=== PATIENT | female | born 1950 | race Two or more races ===

== ENCOUNTER 2020-10-02 07:05 | Inpatient (IN) | payer MEDICARE ==
[~2020-10-02] VITALS: Ht 157.5 cm; Wt 94.0 kg
[2020-10-02] MEDS ORDERED: MIDAZOLAM DRIP 50 mg/50mL 50 ML IV ONE (08:05)
[2020-10-02] MEDS ORDERED: PROPOFOL 100 ML IV ONE (08:06)
[2020-10-02] MEDS ORDERED: NOREPINEPHRINE 8 MG/250ML KIT 250 ML IV ONE ×2 (09:32→15:34)
[2020-10-02] MEDS ORDERED: ROCURONIUM 10MG/ML 10ML VIAL IV ONE ×3 (11:15→11:30)
[2020-10-02] MEDS ORDERED: MIDAZOLAM DRIP 50 mg/50mL 100 ML IV ONE (12:43)
[2020-10-02] MEDS: MIDAZOLAM DRIP 50 mg/50mL 50 ML IV SCH (13:00)
[2020-10-02 15:04] LABS: Basophils # (auto) 0 10 ^3/uL (0-0.2); Basophils % (auto) 0.1 % (0.0-2.0); Eosinophils # (auto) 0 10 ^3/uL (0-0.8); Hematocrit 37.3 % (36.0-46.0); Hemoglobin 12.9 g/dL (12.2-16.2); Lymphocytes % (auto) 8.8 % (10.0-50.0); Mean Corpuscular Hgb Conc. 34.7 g/dL (32.0-36.0); Mean Corpuscular Volume 86.5 fL (80.0-100.0); Monocytes # (auto) 0.2 10 ^3/uL (0-1.3); Monocytes % (auto) 2.2 % (0.0-12.0); Neutrophils # (auto) 9.6 10 ^3/uL (1.6-8.6); Neutrophils % (auto) 88.9 % (37.0-80.0); Nucleated Red Blood Cells % 0.1 %; Red Blood Cells 4.31 10^6/uL (4.0-5.20); Red Cell Distribution Width 14.9 % (11.8-14.3); White Blood Cell 10.8 10^3/uL (4.4-10.8)
[2020-10-02] MEDS ORDERED: REMDESIVIR PER PHARMACY 0 ML IV SCH (15:45)
[2020-10-02] MEDS ORDERED: FAMOTIDINE (10MG/ML) 2ML VL IV SCH ×2 (15:45→22:00)
[2020-10-02] MEDS ORDERED: NITROGLYCERIN 0.4 MG SL TAB SL PRN (15:45)
[2020-10-02] MEDS ORDERED: ALBUTEROL SULF HFA 90MCG INH 200DOSE IN PRN (15:45)
[2020-10-02] MEDS ORDERED: MORPHINE SULFATE INJECTION 2 MG/ML SYRG IV PRN ×2 (15:45)
[2020-10-02] MEDS ORDERED: DEXTROSE (50%) 50ML SYRG IV PRN (15:45)
[2020-10-02] MEDS ORDERED: levoFLOXacin 500MG 100 ML IV ONE (15:45)
[2020-10-02] MEDS ORDERED: PROMETHAZINE HCL 25 MG/ML 1ML IV PRN (15:45)
[2020-10-02 16:41] VITALS: BP 90/40
[2020-10-02 16:49] LABS: Lactic Acid w/Reflex 5.3 mmol/L (0.4-2.0)
[2020-10-02 16:57] LABS: Chloride 96 mmol/L (98-107); Sodium 134 mmol/L (136-145)
[2020-10-02 17:00] LABS: Alanine Aminotransferase 271 U/L (13-56); Albumin 2.5 g/dL (3.4-5.0); Anion Gap 15 (5-15); Aspartate Aminotransferase 571 U/L (15-37); Blood Urea Nitrogen 43 mg/dL (7-18); Carbon Dioxide 23 mmol/L (21-32); GFR African American 13 mL/min; GFR Non-African American 11 mL/min; Glucose 218 mg/dL (74-106); Magnesium 2.3 mg/dL (1.6-2.6)
[2020-10-02 17:05] LABS: Alkaline Phosphatase 137 U/L (45-117); Bilirubin, Total 0.3 mg/dL (0.2-1.0); Blood Alcohol < 3.0 mg/dL (0-5); Total Protein 6.8 g/dL (6.4-8.2)
[2020-10-02 17:11] LABS: Potassium 2.7 mmol/L (3.5-5.1)
[2020-10-02] MEDS: ACCU-CHEK COMFORT CURVE STRIP VI SCH (18:00)
[2020-10-02] MEDS: POTASSIUM CHL 20MEQ/100ML 100 ML IV SCH ×2 (18:00→21:02)
[2020-10-02] MEDS: InsuLIN REG 1unit/0.01ml Soln (100units/ml) SC SCH (18:00)
[2020-10-02 18:15] LABS: Lactate Dehydrogenase 2076 U/L (84-246)
[2020-10-02 18:20] VITALS: BP 90/40
[2020-10-02 18:24] LABS: CRP High Sensitivity > 19.0 mg/dL (< 0.3)
[2020-10-02] MEDS: PROPOFOL 100 ML IV SCH (18:27)
[2020-10-02] MEDS: SODIUM CHLORIDE 0.9% 1,000 ML IV SCH (19:45)
[2020-10-02] MEDS ORDERED: BUDESONIDE (INHALATION) 180 MCG IH IN SCH (22:00)
[2020-10-02] MEDS ORDERED: ENOXAPARIN SOD 40 MG/0.4 ML SYRINGE SC SCH (22:00)
[2020-10-02 22:30] VITALS: BP 123/62
[2020-10-02] MEDS: NOREPINEPHRINE 8 MG/250ML KIT 250 ML IV SCH (22:45)
[2020-10-02] MEDS: CLINDAMYCIN 600MG IV 50 ML IV SCH (23:00)
[2020-10-03] MEDS: ACCU-CHEK COMFORT CURVE STRIP VI SCH ×4 (00:16→20:30)
[2020-10-03] MEDS: InsuLIN REG 1unit/0.01ml Soln (100units/ml) SC SCH ×4 (00:17→20:32)
[2020-10-03] MEDS: MIDAZOLAM DRIP 50 mg/50mL 50 ML IV SCH ×4 (01:00→15:56)
[2020-10-03 02:40] VITALS: BP 124/66
[2020-10-03] MEDS: PROPOFOL 100 ML IV SCH ×2 (03:49→14:35)
[2020-10-03 05:02] LABS: Hematocrit 33.4 % (36.0-46.0); Hemoglobin 11.5 g/dL (12.2-16.2); Mean Corpuscular Hemoglobin 29.9 pg (28.0-32.0); Mean Corpuscular Hgb Conc. 34.5 g/dL (32.0-36.0); Mean Corpuscular Volume 86.6 fL (80.0-100.0); Red Blood Cells 3.86 10^6/uL (4.0-5.20); Red Cell Distribution Width 14.5 % (11.8-14.3); White Blood Cell 17.7 10^3/uL (4.4-10.8)
[2020-10-03 05:12] LABS: Albumin 1.9 g/dL (3.4-5.0); Calcium 6.2 mg/dL (8.5-10.1); Potassium 3.9 mmol/L (3.5-5.1)
[2020-10-03 05:15] LABS: BUN/Creatinine Ratio 9.9; Bilirubin, Total 0.3 mg/dL (0.2-1.0); Total Protein 6.1 g/dL (6.4-8.2)
[2020-10-03] MEDS: SODIUM CHLORIDE 0.9% 1,000 ML IV SCH ×2 (05:15→14:29)
[2020-10-03 05:58] LABS: Basophils % (manual) 0 (0.0-2.0); Blast Cells 0; Eosinophils % (manual) 0 (0-7); Promyelocytes % 0; Reactive Lymphocytes 0
[2020-10-03 07:30] VITALS: BP 105/59
[2020-10-03] MEDS: NOREPINEPHRINE 8 MG/250ML KIT 250 ML IV SCH (07:49)
[2020-10-03] MEDS: CLINDAMYCIN 600MG IV 50 ML IV SCH ×2 (08:00→14:28)
[2020-10-03 08:04] LABS: Band Neutrophils % (manual) 20; Lymphocytes % (manual) 10 (10.0-50.0); Metamyelocytes % 8; Monocytes % (manual) 1 (0-12); Myelocytes % 2
[2020-10-03] MEDS: HEPARIN SODIUM (PORCINE) 5000 UNITS/ML 1ML VIAL SC SCH (10:00)
[2020-10-03] MEDS: levoFLOXacin 250MG 100 ML IV SCH (10:29)
[2020-10-03] MEDS: FAMOTIDINE (10MG/ML) 2ML VL IV SCH (10:29)
[2020-10-03] MEDS: DexAMETHasone SOD PHOS 10MG/1ML VIAL INJ IV SCH (10:29)
[2020-10-03] MEDS: ZINC SULFATE 220mg CAP or TAB PO SCH (10:30)
[2020-10-03] MEDS: ASCORBIC ACID 1,000 MG TAB PO SCH (10:30)
[2020-10-03] MEDS: ASPirin 81 mg TAB NG SCH (10:30)
[2020-10-03] MEDS: CHOLECALCIFEROL (VITD3) 2,000 UNIT CAP/TAB PO SCH (10:30)
[2020-10-03 10:36] VITALS: BP 107/49
[2020-10-03] MEDS ORDERED: DOPamine 1600MCG/ML D5W 250 ML IV ONE (11:52)
[2020-10-03] MEDS ORDERED: PHENYLEPHRINE IV 250 ML IV ONE (11:54)
[2020-10-03] MEDS: PHENYLEPHRINE IV 250 ML IV SCH (12:13)
[2020-10-03] MEDS ORDERED: DOPamine 1600MCG/ML D5W 250 ML IV SCH (12:15)
[2020-10-03 13:46] VITALS: BP 129/57
[2020-10-03] MEDS ORDERED: ACETAMINOPHEN 650 MG RECT SUPP PR ONE (18:00)
[2020-10-03 19:23] VITALS: BP 131/57
[2020-10-04] MEDS: HEPARIN SODIUM (PORCINE) 5000 UNITS/ML 1ML VIAL SC SCH ×3 (00:22→22:00)
[2020-10-04] MEDS: InsuLIN REG 1unit/0.01ml Soln (100units/ml) SC SCH ×4 (00:25→18:39)
[2020-10-04] MEDS: ACCU-CHEK COMFORT CURVE STRIP VI SCH ×4 (00:25→18:39)
[2020-10-04] MEDS: CLINDAMYCIN 600MG IV 50 ML IV SCH ×4 (01:04→22:00)
[2020-10-04] MEDS: PHENYLEPHRINE IV 250 ML IV SCH ×4 (02:40→21:35)
[2020-10-04] MEDS: SODIUM CHLORIDE 0.9% 1,000 ML IV SCH ×3 (02:42→21:15)
[2020-10-04 05:32] LABS: Basophils # (auto) 0 10 ^3/uL (0-0.2); Eosinophils # (auto) 0 10 ^3/uL (0-0.8); Hemoglobin 11.7 g/dL (12.2-16.2); Lymphocytes # (auto) 0.8 10 ^3/uL (0.4-5.4); Mean Corpuscular Hemoglobin 29.4 pg (28.0-32.0); Mean Corpuscular Hgb Conc. 34.5 g/dL (32.0-36.0); Mean Corpuscular Volume 85.3 fL (80.0-100.0); Monocytes # (auto) 0.5 10 ^3/uL (0-1.3); Monocytes % (auto) 2.7 % (0.0-12.0); Neutrophils # (auto) 17.5 10 ^3/uL (1.6-8.6); Neutrophils % (auto) 93.3 % (37.0-80.0); Nucleated Red Blood Cells % 0.5 %; Red Blood Cells 3.99 10^6/uL (4.0-5.20); Red Cell Distribution Width 14.9 % (11.8-14.3); White Blood Cell 18.8 10^3/uL (4.4-10.8)
[2020-10-04 05:51] LABS: Albumin 1.9 g/dL (3.4-5.0); BUN/Creatinine Ratio 9.8; Calcium 6.1 mg/dL (8.5-10.1); Potassium 4.3 mmol/L (3.5-5.1)
[2020-10-04 05:56] LABS: Bilirubin, Total 0.5 mg/dL (0.2-1.0); Lactic Acid w/Reflex 3.8 mmol/L (0.4-2.0); Total Protein 6.2 g/dL (6.4-8.2)
[2020-10-04 06:30] VITALS: BP 157/75
[2020-10-04] MEDS: ROCURONIUM BROMIDE 1,000 MG in D5W 5% 150 ML IV SCH ×2 (07:29→07:31)
[2020-10-04] MEDS: fentaNYL Drip 2500mCg/250mlNS 250 ML IV SCH ×3 (07:29→13:00)
[2020-10-04 08:20] LABS: Alcohol, Urine < 3.0 mg/dL (0-10); Barbiturate Scree,Urine NEGATIVE (NEGATIVE); Benzodiazephine Screen, Urine POSITIVE (NEGATIVE); Cannabinoid Screen, Urine NEGATIVE (NEGATIVE); Cocaine Screen, Urine NEGATIVE (NEGATIVE); Opiate Scree,Urine NEGATIVE (NEGATIVE); Phencyclidine Screen, Urine NEGATIVE (NEGATIVE)
[2020-10-04 08:27] LABS: Amphetamine Screen, Urine NEGATIVE (NEGATIVE)
[2020-10-04 08:56] LABS: Urine Bacteria FEW /hpf (None Seen); Urine Blood 2+ /uL (Negative); Urine Hyaline Cast FEW /lpf (0 - 2); Urine Specific Gravity 1.011 (1.001-1.035); Urine WBC 14 /hpf (0 - 5)
[2020-10-04] MEDS: DexAMETHasone SOD PHOS 10MG/1ML VIAL INJ IV SCH (10:14)
[2020-10-04] MEDS: FAMOTIDINE (10MG/ML) 2ML VL IV SCH (10:16)
[2020-10-04] MEDS: ASPirin 81 mg TAB NG SCH (10:17)
[2020-10-04] MEDS: ASCORBIC ACID 1,000 MG TAB PO SCH (10:18)
[2020-10-04] MEDS: CHOLECALCIFEROL (VITD3) 2,000 UNIT CAP/TAB PO SCH (10:18)
[2020-10-04] MEDS: ZINC SULFATE 220mg CAP or TAB PO SCH (10:18)
[2020-10-04 10:33] VITALS: BP 127/61
[2020-10-04 18:25] VITALS: BP 132/74
[2020-10-04] MEDS: NOREPINEPHRINE 8 MG/250ML KIT 250 ML IV SCH (18:48)
[2020-10-04 22:10] VITALS: BP 147/76
[2020-10-05] MEDS: ACCU-CHEK COMFORT CURVE STRIP VI SCH ×4 (00:33→17:55)
[2020-10-05] MEDS: InsuLIN REG 1unit/0.01ml Soln (100units/ml) SC SCH ×4 (00:37→17:55)
[2020-10-05 02:20] VITALS: BP 138/73
[2020-10-05 05:35] LABS: Basophils # (auto) 0 10 ^3/uL (0-0.2); Basophils % (auto) 0.1 % (0.0-2.0); Eosinophils # (auto) 0 10 ^3/uL (0-0.8); Hematocrit 30.7 % (36.0-46.0); Hemoglobin 10.2 g/dL (12.2-16.2); Lymphocytes # (auto) 0.5 10 ^3/uL (0.4-5.4); Lymphocytes % (auto) 2.9 % (10.0-50.0); Mean Corpuscular Hemoglobin 28.5 pg (28.0-32.0); Mean Corpuscular Hgb Conc. 33.3 g/dL (32.0-36.0); Mean Corpuscular Volume 85.7 fL (80.0-100.0); Monocytes # (auto) 0.7 10 ^3/uL (0-1.3); Monocytes % (auto) 4.2 % (0.0-12.0); Neutrophils # (auto) 16.4 10 ^3/uL (1.6-8.6); Neutrophils % (auto) 92.8 % (37.0-80.0); Nucleated Red Blood Cells % 0.2 %; Red Blood Cells 3.58 10^6/uL (4.0-5.20); Red Cell Distribution Width 14.8 % (11.8-14.3); White Blood Cell 17.7 10^3/uL (4.4-10.8)
[2020-10-05 05:53] LABS: Calcium 6.3 mg/dL (8.5-10.1); Potassium 3.9 mmol/L (3.5-5.1)
[2020-10-05] MEDS: PHENYLEPHRINE IV 250 ML IV SCH ×3 (05:55→22:13)
[2020-10-05] MEDS: CLINDAMYCIN 600MG IV 50 ML IV SCH ×3 (06:13→22:05)
[2020-10-05 06:20] VITALS: BP 138/71
[2020-10-05] MEDS: SODIUM CHLORIDE 0.9% 1,000 ML IV SCH ×2 (08:14→17:50)
[2020-10-05] MEDS: MIDAZOLAM DRIP 50 mg/50mL 50 ML IV SCH (09:30)
[2020-10-05 10:24] VITALS: BP 94/54
[2020-10-05] MEDS: FAMOTIDINE (10MG/ML) 2ML VL IV SCH (11:13)
[2020-10-05] MEDS: DexAMETHasone SOD PHOS 10MG/1ML VIAL INJ IV SCH (11:13)
[2020-10-05] MEDS: levoFLOXacin 250MG 100 ML IV SCH (11:13)
[2020-10-05] MEDS: HEPARIN SODIUM (PORCINE) 5000 UNITS/ML 1ML VIAL SC SCH ×2 (11:14→22:10)
[2020-10-05] MEDS: ZINC SULFATE 220mg CAP or TAB PO SCH (11:14)
[2020-10-05] MEDS: CHOLECALCIFEROL (VITD3) 2,000 UNIT CAP/TAB PO SCH (11:14)
[2020-10-05] MEDS: ASCORBIC ACID 1,000 MG TAB PO SCH (11:14)
[2020-10-05] MEDS: ASPirin 81 mg TAB NG SCH (11:14)
[2020-10-05] MEDS: PROPOFOL 100 ML IV SCH ×2 (12:32→16:07)
[2020-10-05] MEDS: fentaNYL Drip 2500mCg/250mlNS 250 ML IV SCH (12:32)
[2020-10-05 14:15] VITALS: BP 94/54
[2020-10-05 17:51] VITALS: BP 101/56
[2020-10-05] MEDS: NOREPINEPHRINE 8 MG/250ML KIT 250 ML IV SCH (19:30)
[2020-10-05 22:19] VITALS: BP 133/71
[2020-10-06 03:00] LABS: Creatinine, Urine 41 mg/dL (30.0-125.0); Sodium Urine 26 mmol/L (40-220)
[2020-10-06] MEDS: SODIUM CHLORIDE 0.9% 1,000 ML IV SCH ×3 (03:18→23:54)
[2020-10-06] MEDS: InsuLIN REG 1unit/0.01ml Soln (100units/ml) SC SCH ×4 (06:00→18:00)
[2020-10-06] MEDS: CLINDAMYCIN 600MG IV 50 ML IV SCH ×3 (06:03→21:58)
[2020-10-06] MEDS: ACCU-CHEK COMFORT CURVE STRIP VI SCH ×4 (06:06→18:25)
[2020-10-06 06:15] LABS: Basophils # (auto) 0 10 ^3/uL (0-0.2); Eosinophils # (auto) 0 10 ^3/uL (0-0.8); Hematocrit 26.8 % (36.0-46.0); Hemoglobin 9.2 g/dL (12.2-16.2); Lymphocytes # (auto) 0.5 10 ^3/uL (0.4-5.4); Lymphocytes % (auto) 2.2 % (10.0-50.0); Mean Corpuscular Hemoglobin 29.1 pg (28.0-32.0); Mean Corpuscular Hgb Conc. 34.2 g/dL (32.0-36.0); Mean Corpuscular Volume 85.2 fL (80.0-100.0); Monocytes # (auto) 0.7 10 ^3/uL (0-1.3); Monocytes % (auto) 3.2 % (0.0-12.0); Neutrophils % (auto) 94.6 % (37.0-80.0); Red Blood Cells 3.15 10^6/uL (4.0-5.20); Red Cell Distribution Width 14.8 % (11.8-14.3); White Blood Cell 21.1 10^3/uL (4.4-10.8)
[2020-10-06 06:42] LABS: INR 1.05 (0.9-1.15); Partial Thromboplastin Time 33.9 sec (23.0-31.2)
[2020-10-06] MEDS: PHENYLEPHRINE IV 250 ML IV SCH ×3 (06:55→23:35)
[2020-10-06 07:03] LABS: Potassium 4.3 mmol/L (3.5-5.1)
[2020-10-06 07:15] VITALS: BP 136/69
[2020-10-06 07:15] LABS: Albumin 1.9 g/dL (3.4-5.0); BUN/Creatinine Ratio 14.4; Bilirubin, Total 0.6 mg/dL (0.2-1.0); Calcium 6.3 mg/dL (8.5-10.1); Total Protein 6.2 g/dL (6.4-8.2)
[2020-10-06 07:33] LABS: CRP High Sensitivity 15.3 mg/dL (< 0.3)
[2020-10-06] MEDS: CHOLECALCIFEROL (VITD3) 2,000 UNIT CAP/TAB PO SCH (10:30)
[2020-10-06] MEDS: ZINC SULFATE 220mg CAP or TAB PO SCH (10:30)
[2020-10-06] MEDS: HEPARIN SODIUM (PORCINE) 5000 UNITS/ML 1ML VIAL SC SCH ×2 (10:30→22:06)
[2020-10-06] MEDS: ASPirin 81 mg TAB NG SCH (10:30)
[2020-10-06] MEDS: FAMOTIDINE (10MG/ML) 2ML VL IV SCH (10:30)
[2020-10-06] MEDS: ASCORBIC ACID 1,000 MG TAB PO SCH (10:30)
[2020-10-06] MEDS ORDERED: HEPARIN SODIUM (PORCINE) 5000 UNITS/ML 1ML VIAL ONE (10:33)
[2020-10-06] MEDS: DexAMETHasone SOD PHOS 10MG/1ML VIAL INJ IV SCH (10:40)
[2020-10-06] MEDS: fentaNYL Drip 2500mCg/250mlNS 250 ML IV SCH ×2 (14:00→18:33)
[2020-10-06 14:06] VITALS: BP 123/60
[2020-10-06] MEDS: MIDAZOLAM DRIP 50 mg/50mL 50 ML IV SCH ×2 (14:06→22:00)
[2020-10-06 18:30] VITALS: BP 119/50
[2020-10-06] MEDS ORDERED: REMDESIVIR PER PHARMACY 0 ML IV SCH (18:30)
[2020-10-06] MEDS ORDERED: ACETAMINOPHEN 650 mg PER 20.3 mL UD GT PRN (18:30)
[2020-10-06] MEDS: NOREPINEPHRINE 8 MG/250ML KIT 250 ML IV SCH (19:30)
[2020-10-06] MEDS: PROPOFOL 100 ML IV SCH (22:00)
[2020-10-06 22:58] VITALS: BP 96/36
[2020-10-07 02:04] VITALS: BP 91/35
[2020-10-07] MEDS: MIDAZOLAM DRIP 50 mg/50mL 50 ML IV SCH (05:00)
[2020-10-07] MEDS: PROPOFOL 100 ML IV SCH (05:00)
[2020-10-07] MEDS: CLINDAMYCIN 600MG IV 50 ML IV SCH ×3 (05:32→21:29)
[2020-10-07] MEDS: ACCU-CHEK COMFORT CURVE STRIP VI SCH ×4 (05:42→18:10)
[2020-10-07] MEDS: InsuLIN REG 1unit/0.01ml Soln (100units/ml) SC SCH ×4 (05:42→18:00)
[2020-10-07 06:50] VITALS: BP 97/47
[2020-10-07 07:05] LABS: Hematocrit 25.7 % (36.0-46.0); Hemoglobin 8.9 g/dL (12.2-16.2); Mean Corpuscular Hemoglobin 29.8 pg (28.0-32.0); Mean Corpuscular Hgb Conc. 34.7 g/dL (32.0-36.0); Red Blood Cells 2.99 10^6/uL (4.0-5.20); Red Cell Distribution Width 14.7 % (11.8-14.3)
[2020-10-07 07:26] LABS: Chloride 102 mmol/L (98-107); Potassium 4.2 mmol/L (3.5-5.1); Sodium 133 mmol/L (136-145)
[2020-10-07 07:43] LABS: Basophils % (manual) 0 (0.0-2.0); Blast Cells 0; Eosinophils % (manual) 0 (0-7); Myelocytes % 0; Promyelocytes % 0; Reactive Lymphocytes 0
[2020-10-07 07:53] LABS: Alanine Aminotransferase 42 U/L (13-56); Albumin 1.5 g/dL (3.4-5.0); Alkaline Phosphatase 150 U/L (45-117); Anion Gap 15 (5-15); Aspartate Aminotransferase 26 U/L (15-37); BUN/Creatinine Ratio 16.3; Calcium 6.4 mg/dL (8.5-10.1); Carbon Dioxide 16 mmol/L (21-32); GFR African American 9 mL/min; GFR Non-African American 7 mL/min; Glucose 65 mg/dL (74-106); Total Protein 5.9 g/dL (6.4-8.2)
[2020-10-07 08:12] LABS: CRP High Sensitivity > 19.0 mg/dL (< 0.3)
[2020-10-07 08:15] LABS: Blood Urea Nitrogen 96 mg/dL (7-18)
[2020-10-07] MEDS: PHENYLEPHRINE IV 250 ML IV SCH ×2 (08:33→16:15)
[2020-10-07 08:57] LABS: Band Neutrophils % (manual) 15; Lymphocytes % (manual) 4 (10.0-50.0); Metamyelocytes % 3; Monocytes % (manual) 1 (0-12)
[2020-10-07] MEDS: SODIUM CHLORIDE 0.9% 1,000 ML IV SCH (09:16)
[2020-10-07] MEDS ORDERED: SODIUM BICARBONATE 8.4 % INJ 50ML VIAL IV ONE (10:00)
[2020-10-07] MEDS: DexAMETHasone SOD PHOS 10MG/1ML VIAL INJ IV SCH (10:53)
[2020-10-07] MEDS: levoFLOXacin 250MG 100 ML IV SCH (10:53)
[2020-10-07] MEDS: CHOLECALCIFEROL (VITD3) 2,000 UNIT CAP/TAB PO SCH (10:53)
[2020-10-07] MEDS: ASCORBIC ACID 1,000 MG TAB PO SCH (10:53)
[2020-10-07] MEDS: FAMOTIDINE (10MG/ML) 2ML VL IV SCH (10:53)
[2020-10-07] MEDS: ZINC SULFATE 220mg CAP or TAB PO SCH (10:53)
[2020-10-07] MEDS: ASPirin 81 mg TAB NG SCH (10:53)
[2020-10-07] MEDS: HEPARIN SODIUM (PORCINE) 5000 UNITS/ML 1ML VIAL SC SCH ×2 (10:54→21:29)
[2020-10-07] MEDS: SODIUM BICARBONATE 50ML VIAL 75 ML in SOD CHL 0.45% 1,000 ML IV SCH ×2 (10:59→20:30)
[2020-10-07 11:11] VITALS: BP 137/53
[2020-10-07] MEDS: fentaNYL Drip 2500mCg/250mlNS 250 ML IV SCH (13:00)
[2020-10-07 14:34] VITALS: BP 124/65
[2020-10-07 18:12] VITALS: BP 121/49
[2020-10-07] MEDS: NOREPINEPHRINE 8 MG/250ML KIT 250 ML IV SCH (19:30)
[2020-10-07 21:30] VITALS: BP 140/57
[2020-10-07] MEDS: MEROPENEM 500MG IVPB 50 ML IV SCH (23:00)
[2020-10-08] VITALS (37 sets, daily range): BP systolic 89–161; BP diastolic 43–71
[2020-10-08] MEDS: ACCU-CHEK COMFORT CURVE STRIP VI SCH ×5 (00:06→23:51)
[2020-10-08] MEDS: PHENYLEPHRINE IV 250 ML IV SCH ×3 (00:35→17:15)
[2020-10-08] MEDS ORDERED: PROPOFOL 100 ML IV ONE (01:08)
[2020-10-08] MEDS: PROPOFOL 100 ML IV SCH (01:12)
[2020-10-08] MEDS ORDERED: MIDAZOLAM DRIP 50 mg/50mL 100 ML IV ONE (02:53)
[2020-10-08] MEDS ORDERED: NOREPINEPHRINE 8 MG/250ML KIT 250 ML IV ONE (04:08)
[2020-10-08] MEDS ORDERED: CLINDAMYCIN 600MG IV 50 ML IV ONE (04:43)
[2020-10-08] MEDS: CLINDAMYCIN 600MG IV 50 ML IV SCH ×3 (05:19→23:57)
[2020-10-08] MEDS: InsuLIN REG 1unit/0.01ml Soln (100units/ml) SC SCH ×5 (05:19→23:51)
[2020-10-08 06:18] LABS: Hematocrit 26.5 % (36.0-46.0); Mean Corpuscular Hgb Conc. 33.9 g/dL (32.0-36.0); Mean Corpuscular Volume 85.5 fL (80.0-100.0); White Blood Cell 26.9 10^3/uL (4.4-10.8)
[2020-10-08 06:25] LABS: Basophils % (manual) 0 (0.0-2.0); Blast Cells 0; Eosinophils % (manual) 0 (0-7); Metamyelocytes % 0; Monocytes % (manual) 0 (0-12); Myelocytes % 0; Promyelocytes % 0; Reactive Lymphocytes 0
[2020-10-08 06:30] LABS: Calcium 6.4 mg/dL (8.5-10.1)
[2020-10-08 06:35] LABS: BUN/Creatinine Ratio 17.8
[2020-10-08 06:36] LABS: Potassium 5.8 mmol/L (3.5-5.1)
[2020-10-08] MEDS: SODIUM BICARBONATE 50ML VIAL 75 ML in SOD CHL 0.45% 1,000 ML IV SCH ×2 (07:15→18:00)
[2020-10-08 07:28] LABS: Band Neutrophils % (manual) 13; Lymphocytes % (manual) 6 (10.0-50.0)
[2020-10-08] MEDS: ZINC SULFATE 220mg CAP or TAB PO SCH (09:04)
[2020-10-08] MEDS: ASCORBIC ACID 1,000 MG TAB PO SCH (09:04)
[2020-10-08] MEDS: FAMOTIDINE (10MG/ML) 2ML VL IV SCH ×2 (09:04→23:58)
[2020-10-08] MEDS: CHOLECALCIFEROL (VITD3) 2,000 UNIT CAP/TAB PO SCH (09:04)
[2020-10-08] MEDS: DexAMETHasone SOD PHOS 10MG/1ML VIAL INJ IV SCH (09:04)
[2020-10-08] MEDS: ASPirin 81 mg TAB NG SCH (09:04)
[2020-10-08] MEDS ORDERED: FAMOTIDINE (10MG/ML) 2ML VL IV SCH (10:00)
[2020-10-08] MEDS: MEROPENEM 500MG IVPB 50 ML IV SCH ×2 (10:00→23:58)
[2020-10-08] MEDS ORDERED: InsuLIN REG 1unit/0.01ml Soln (100units/ml) IV ONE (11:00)
[2020-10-08] MEDS ORDERED: ALBUTEROL SULF 2.5 MG/0.5ML(0.5%) NEB SOLN NEB ONE (11:00)
[2020-10-08] MEDS ORDERED: DEXTROSE (50%) 50ML SYRG IV ONE (11:00)
[2020-10-08] MEDS ORDERED: SODIUM BICARBONATE 8.4 % INJ 50ML VIAL IV ONE (11:00)
[2020-10-08] MEDS ORDERED: CALCIUM GLUC 4.65meq/50ml D5AE 50 ML IV ONE (11:00)
[2020-10-08] MEDS: MIDAZOLAM DRIP 50 mg/50mL 50 ML IV SCH (13:00)
[2020-10-08] MEDS: fentaNYL Drip 2500mCg/250mlNS 250 ML IV SCH (13:00)
[2020-10-08 18:35] LABS: BUN/Creatinine Ratio 20.3; Calcium 6.3 mg/dL (8.5-10.1); Potassium 5.5 mmol/L (3.5-5.1)
[2020-10-08] MEDS: NOREPINEPHRINE 8 MG/250ML KIT 250 ML IV SCH (19:30)
[2020-10-08] MEDS: SODIUM ZIRCONIUM CYCL 10 GM PAK GT SCH (23:57)
[2020-10-09] VITALS (96 sets, daily range): BP systolic 83–192; BP diastolic 41–84
[2020-10-09] MEDS: PHENYLEPHRINE IV 250 ML IV SCH ×3 (01:35→16:53)
[2020-10-09] MEDS: PROPOFOL 100 ML IV SCH (05:08)
[2020-10-09] MEDS: CLINDAMYCIN 600MG IV 50 ML IV SCH ×3 (06:00→21:26)
[2020-10-09] MEDS: SODIUM ZIRCONIUM CYCL 10 GM PAK GT SCH ×3 (06:00→21:25)
[2020-10-09] MEDS: InsuLIN REG 1unit/0.01ml Soln (100units/ml) SC SCH ×3 (06:00→16:58)
[2020-10-09] MEDS: ACCU-CHEK COMFORT CURVE STRIP VI SCH ×3 (06:01→16:58)
[2020-10-09] MEDS: FAMOTIDINE (10MG/ML) 2ML VL IV SCH ×2 (08:30→21:26)
[2020-10-09] MEDS: MEROPENEM 500MG IVPB 50 ML IV SCH ×2 (08:30→21:25)
[2020-10-09] MEDS: DexAMETHasone SOD PHOS 10MG/1ML VIAL INJ IV SCH (08:30)
[2020-10-09] MEDS: CHOLECALCIFEROL (VITD3) 2,000 UNIT CAP/TAB PO SCH (08:31)
[2020-10-09] MEDS: ZINC SULFATE 220mg CAP or TAB PO SCH (08:31)
[2020-10-09] MEDS: ASCORBIC ACID 1,000 MG TAB PO SCH (08:31)
[2020-10-09] MEDS: ASPirin 81 mg TAB NG SCH (08:31)
[2020-10-09] MEDS: MIDAZOLAM DRIP 50 mg/50mL 50 ML IV SCH (09:00)
[2020-10-09 09:19] LABS: Magnesium 2.8 mg/dL (1.6-2.6); Potassium 5.4 mmol/L (3.5-5.1)
[2020-10-09 09:20] LABS: BUN/Creatinine Ratio 22.4
[2020-10-09 09:25] LABS: Calcium 5.9 mg/dL (8.5-10.1)
[2020-10-09] MEDS: SODIUM BICARBONATE 50ML VIAL 75 ML in SOD CHL 0.45% 1,000 ML IV SCH ×2 (12:07→15:11)
[2020-10-09] MEDS ORDERED: CALCIUM CHL 100MG/ML 1,000 MG in D5W 5% 100 ML IV ONE (13:30)
[2020-10-09] MEDS: fentaNYL Drip 2500mCg/250mlNS 250 ML IV SCH (14:26)
[2020-10-09] MEDS: DOPamine 1600MCG/ML D5W 250 ML IV SCH (14:27)
[2020-10-09] MEDS: FUROSEMIDE INJECTION 100 MG in D5W 5% 100 ML IV SCH ×2 (15:23→20:21)
[2020-10-09] MEDS ORDERED: hydrALAZINE HCL 20 MG/ML VL IV ONE (15:30)
[2020-10-09] MEDS ORDERED: CALCIUM GLUC 4.65meq/50ml D5AE 50 ML IV ONE (16:30)
[2020-10-09] MEDS: NOREPINEPHRINE 8 MG/250ML KIT 250 ML IV SCH (16:58)
[2020-10-09] MEDS ORDERED: hydrALAZINE HCL 20 MG/ML VL IV PRN (17:30)
[2020-10-09 22:41] LABS: Hematocrit 26.1 % (36.0-46.0); Hemoglobin 8.8 g/dL (12.2-16.2); Mean Corpuscular Hemoglobin 28.9 pg (28.0-32.0); Mean Corpuscular Hgb Conc. 33.7 g/dL (32.0-36.0); Mean Corpuscular Volume 85.6 fL (80.0-100.0); Red Blood Cells 3.05 10^6/uL (4.0-5.20); Red Cell Distribution Width 14.5 % (11.8-14.3); White Blood Cell 19.8 10^3/uL (4.4-10.8)
[2020-10-09 22:50] LABS: Basophils % (manual) 0 (0.0-2.0); Blast Cells 0; Eosinophils % (manual) 0 (0-7); Promyelocytes % 0; Reactive Lymphocytes 0
[2020-10-09 23:04] LABS: Albumin 1.4 g/dL (3.4-5.0); Calcium 6.7 mg/dL (8.5-10.1); Potassium 4.8 mmol/L (3.5-5.1)
[2020-10-10] VITALS (99 sets, daily range): BP systolic 90–140; BP diastolic 41–63
[2020-10-10 00:06] LABS: BUN/Creatinine Ratio 26.2; Bilirubin, Total 1.2 mg/dL (0.2-1.0); Total Protein 6.3 g/dL (6.4-8.2)
[2020-10-10] MEDS: FUROSEMIDE INJECTION 100 MG in D5W 5% 100 ML IV SCH ×5 (00:30→21:00)
[2020-10-10] MEDS: ACCU-CHEK COMFORT CURVE STRIP VI SCH ×4 (00:46→18:23)
[2020-10-10] MEDS: PHENYLEPHRINE IV 250 ML IV SCH ×3 (02:35→19:15)
[2020-10-10] MEDS: SODIUM BICARBONATE 50ML VIAL 75 ML in SOD CHL 0.45% 1,000 ML IV SCH ×2 (03:10→13:17)
[2020-10-10 03:15] LABS: Band Neutrophils % (manual) 1; Lymphocytes % (manual) 6 (10.0-50.0); Metamyelocytes % 2; Monocytes % (manual) 4 (0-12); Myelocytes % 1
[2020-10-10] MEDS: SODIUM ZIRCONIUM CYCL 10 GM PAK GT SCH ×3 (05:02→21:58)
[2020-10-10] MEDS: CLINDAMYCIN 600MG IV 50 ML IV SCH ×3 (05:06→21:59)
[2020-10-10] MEDS: InsuLIN REG 1unit/0.01ml Soln (100units/ml) SC SCH ×4 (06:00→18:00)
[2020-10-10 07:07] LABS: Hematocrit 23.8 % (36.0-46.0); Hemoglobin 8.3 g/dL (12.2-16.2); Mean Corpuscular Hemoglobin 29.8 pg (28.0-32.0); Red Cell Distribution Width 14.9 % (11.8-14.3); White Blood Cell 21.3 10^3/uL (4.4-10.8)
[2020-10-10 07:10] LABS: Basophils % (manual) 0 (0.0-2.0); Blast Cells 0; Eosinophils % (manual) 0 (0-7); Promyelocytes % 0; Reactive Lymphocytes 0
[2020-10-10 07:29] LABS: Potassium 4.6 mmol/L (3.5-5.1)
[2020-10-10 07:36] LABS: Albumin 1.2 g/dL (3.4-5.0); BUN/Creatinine Ratio 27.1; Calcium 6.3 mg/dL (8.5-10.1); Total Protein 5.7 g/dL (6.4-8.2)
[2020-10-10] MEDS: FAMOTIDINE (10MG/ML) 2ML VL IV SCH ×2 (08:37→21:59)
[2020-10-10] MEDS: DexAMETHasone SOD PHOS 10MG/1ML VIAL INJ IV SCH (08:37)
[2020-10-10] MEDS: ZINC SULFATE 220mg CAP or TAB PO SCH (08:38)
[2020-10-10] MEDS: ASPirin 81 mg TAB NG SCH (08:38)
[2020-10-10] MEDS: ASCORBIC ACID 1,000 MG TAB PO SCH (08:38)
[2020-10-10] MEDS: CHOLECALCIFEROL (VITD3) 2,000 UNIT CAP/TAB PO SCH (08:38)
[2020-10-10] MEDS: MEROPENEM 500MG IVPB 50 ML IV SCH ×2 (08:40→21:59)
[2020-10-10 09:04] LABS: Band Neutrophils % (manual) 5; Lymphocytes % (manual) 7 (10.0-50.0); Metamyelocytes % 2; Monocytes % (manual) 3 (0-12); Myelocytes % 2
[2020-10-10] MEDS: MIDAZOLAM DRIP 50 mg/50mL 50 ML IV SCH ×2 (13:00→22:42)
[2020-10-10] MEDS: PROPOFOL 100 ML IV SCH (13:00)
[2020-10-10] MEDS: DOPamine 1600MCG/ML D5W 250 ML IV SCH (13:30)
[2020-10-10] MEDS: NOREPINEPHRINE 8 MG/250ML KIT 250 ML IV SCH (19:30)
[2020-10-10] MEDS: fentaNYL Drip 2500mCg/250mlNS 250 ML IV SCH (22:26)
[2020-10-11] VITALS (102 sets, daily range): BP systolic 81–153; BP diastolic 32–63
[2020-10-11] MEDS: SODIUM BICARBONATE 50ML VIAL 75 ML in SOD CHL 0.45% 1,000 ML IV SCH ×3 (00:21→23:30)
[2020-10-11] MEDS: ACCU-CHEK COMFORT CURVE STRIP VI SCH ×4 (00:21→17:52)
[2020-10-11] MEDS: FUROSEMIDE INJECTION 100 MG in D5W 5% 100 ML IV SCH ×5 (01:00→23:19)
[2020-10-11] MEDS: PHENYLEPHRINE IV 250 ML IV SCH ×3 (03:35→20:15)
[2020-10-11] MEDS: InsuLIN REG 1unit/0.01ml Soln (100units/ml) SC SCH ×4 (05:33→17:52)
[2020-10-11] MEDS: SODIUM ZIRCONIUM CYCL 10 GM PAK GT SCH ×3 (05:33→23:32)
[2020-10-11] MEDS: CLINDAMYCIN 600MG IV 50 ML IV SCH ×3 (05:33→23:33)
[2020-10-11] MEDS: MIDAZOLAM DRIP 50 mg/50mL 50 ML IV SCH ×2 (05:37→23:31)
[2020-10-11 07:32] LABS: Hematocrit 24.2 % (36.0-46.0)
[2020-10-11 07:34] LABS: Hemoglobin 8.2 g/dL (12.2-16.2); Mean Corpuscular Hemoglobin 29.2 pg (28.0-32.0); Mean Corpuscular Hgb Conc. 33.7 g/dL (32.0-36.0); Mean Corpuscular Volume 86.8 fL (80.0-100.0); Red Blood Cells 2.79 10^6/uL (4.0-5.20); Red Cell Distribution Width 14.7 % (11.8-14.3); White Blood Cell 25.1 10^3/uL (4.4-10.8)
[2020-10-11 07:39] LABS: Basophils % (manual) 0 (0.0-2.0); Blast Cells 0; Metamyelocytes % 0; Promyelocytes % 0; Reactive Lymphocytes 0
[2020-10-11 07:41] LABS: Potassium 4.7 mmol/L (3.5-5.1)
[2020-10-11 07:47] LABS: Albumin 1.2 g/dL (3.4-5.0); BUN/Creatinine Ratio 30.7; Calcium 6.1 mg/dL (8.5-10.1); Total Protein 5.6 g/dL (6.4-8.2)
[2020-10-11 08:39] LABS: Band Neutrophils % (manual) 8; Eosinophils % (manual) 1 (0-7); Lymphocytes % (manual) 6 (10.0-50.0); Monocytes % (manual) 3 (0-12); Myelocytes % 1
[2020-10-11] MEDS: ASCORBIC ACID 1,000 MG TAB PO SCH (10:00)
[2020-10-11] MEDS: CHOLECALCIFEROL (VITD3) 2,000 UNIT CAP/TAB PO SCH (10:00)
[2020-10-11] MEDS: MEROPENEM 500MG IVPB 50 ML IV SCH ×2 (10:00→23:33)
[2020-10-11] MEDS: DexAMETHasone SOD PHOS 10MG/1ML VIAL INJ IV SCH (10:00)
[2020-10-11] MEDS: FAMOTIDINE (10MG/ML) 2ML VL IV SCH ×2 (10:00→23:33)
[2020-10-11] MEDS: ZINC SULFATE 220mg CAP or TAB PO SCH (10:00)
[2020-10-11] MEDS: ASPirin 81 mg TAB NG SCH (10:00)
[2020-10-11] MEDS: PROPOFOL 100 ML IV SCH (13:00)
[2020-10-11] MEDS: fentaNYL Drip 2500mCg/250mlNS 250 ML IV SCH ×2 (13:00→23:28)
[2020-10-11] MEDS: DOPamine 1600MCG/ML D5W 250 ML IV SCH (18:30)
[2020-10-11] MEDS ORDERED: FUROSEMIDE INJECTION 0 ML ONE (23:02)
[2020-10-12] VITALS (100 sets, daily range): BP systolic 103–157; BP diastolic 45–63
[2020-10-12] MEDS: FUROSEMIDE INJECTION 100 MG in D5W 5% 100 ML IV SCH ×5 (01:30→21:15)
[2020-10-12] MEDS: ACCU-CHEK COMFORT CURVE STRIP VI SCH ×4 (02:44→18:12)
[2020-10-12] MEDS: NOREPINEPHRINE 8 MG/250ML KIT 250 ML IV SCH ×2 (02:47→19:30)
[2020-10-12] MEDS: PROPOFOL 100 ML IV SCH (03:29)
[2020-10-12] MEDS: PHENYLEPHRINE IV 250 ML IV SCH ×3 (04:35→21:15)
[2020-10-12 05:11] LABS: Hematocrit 24.5 % (36.0-46.0); Red Blood Cells 2.83 10^6/uL (4.0-5.20)
[2020-10-12] MEDS: InsuLIN REG 1unit/0.01ml Soln (100units/ml) SC SCH ×4 (05:11→18:00)
[2020-10-12] MEDS: SODIUM ZIRCONIUM CYCL 10 GM PAK GT SCH ×3 (05:12→23:17)
[2020-10-12] MEDS: CLINDAMYCIN 600MG IV 50 ML IV SCH ×3 (05:12→23:18)
[2020-10-12 05:13] LABS: Hemoglobin 8.5 g/dL (12.2-16.2); Mean Corpuscular Hemoglobin 30.1 pg (28.0-32.0); Mean Corpuscular Hgb Conc. 34.8 g/dL (32.0-36.0); Mean Corpuscular Volume 86.6 fL (80.0-100.0); Red Cell Distribution Width 14.4 % (11.8-14.3); White Blood Cell 21.8 10^3/uL (4.4-10.8)
[2020-10-12 05:17] LABS: Basophils % (manual) 0 (0.0-2.0); Blast Cells 0; Eosinophils % (manual) 0 (0-7); Myelocytes % 0; Promyelocytes % 0; Reactive Lymphocytes 0
[2020-10-12 05:26] LABS: Albumin 1.2 g/dL (3.4-5.0); Calcium 6.2 mg/dL (8.5-10.1); Potassium 4.3 mmol/L (3.5-5.1)
[2020-10-12 05:32] LABS: BUN/Creatinine Ratio 32.2; Bilirubin, Total 1.1 mg/dL (0.2-1.0); Total Protein 6.1 g/dL (6.4-8.2)
[2020-10-12 07:31] LABS: Band Neutrophils % (manual) 3; Lymphocytes % (manual) 1 (10.0-50.0)
[2020-10-12 07:32] LABS: Metamyelocytes % 1; Monocytes % (manual) 2 (0-12)
[2020-10-12] MEDS: SODIUM BICARBONATE 50ML VIAL 75 ML in SOD CHL 0.45% 1,000 ML IV SCH ×2 (08:00→21:14)
[2020-10-12] MEDS: MEROPENEM 500MG IVPB 50 ML IV SCH ×2 (10:00→23:18)
[2020-10-12] MEDS: CHOLECALCIFEROL (VITD3) 2,000 UNIT CAP/TAB PO SCH (10:00)
[2020-10-12] MEDS: ZINC SULFATE 220mg CAP or TAB PO SCH (10:00)
[2020-10-12] MEDS: ASPirin 81 mg TAB NG SCH (10:00)
[2020-10-12] MEDS: ASCORBIC ACID 1,000 MG TAB PO SCH (10:00)
[2020-10-12] MEDS: DexAMETHasone SOD PHOS 10MG/1ML VIAL INJ IV SCH (10:00)
[2020-10-12] MEDS: FAMOTIDINE (10MG/ML) 2ML VL IV SCH ×2 (10:00→23:19)
[2020-10-12] MEDS: DOPamine 1600MCG/ML D5W 250 ML IV SCH (13:30)
[2020-10-13] VITALS (101 sets, daily range): BP systolic 94–168; BP diastolic 39–75
[2020-10-13] MEDS: DOPamine 1600MCG/ML D5W 250 ML IV SCH (00:02)
[2020-10-13] MEDS: ACCU-CHEK COMFORT CURVE STRIP VI SCH ×5 (00:04→23:42)
[2020-10-13] MEDS: MIDAZOLAM DRIP 50 mg/50mL 50 ML IV SCH ×3 (01:21→19:58)
[2020-10-13] MEDS: FUROSEMIDE INJECTION 100 MG in D5W 5% 100 ML IV SCH ×4 (01:57→21:59)
[2020-10-13 03:35] LABS: Hematocrit 24.2 % (36.0-46.0); Hemoglobin 8.1 g/dL (12.2-16.2); Mean Corpuscular Hemoglobin 29.1 pg (28.0-32.0); Mean Corpuscular Hgb Conc. 33.6 g/dL (32.0-36.0); Mean Corpuscular Volume 86.6 fL (80.0-100.0); Red Cell Distribution Width 14.3 % (11.8-14.3)
[2020-10-13 03:50] LABS: Albumin 1.3 g/dL (3.4-5.0); Calcium 6.4 mg/dL (8.5-10.1); Potassium 3.8 mmol/L (3.5-5.1)
[2020-10-13 03:51] LABS: Basophils % (manual) 0 (0.0-2.0); Blast Cells 0; Eosinophils % (manual) 0 (0-7); Promyelocytes % 0; Reactive Lymphocytes 0
[2020-10-13 03:53] LABS: BUN/Creatinine Ratio 33.1; Bilirubin, Total 1.1 mg/dL (0.2-1.0); Total Protein 6.4 g/dL (6.4-8.2)
[2020-10-13 04:29] LABS: Band Neutrophils % (manual) 21; Lymphocytes % (manual) 2 (10.0-50.0); Metamyelocytes % 1; Monocytes % (manual) 1 (0-12); Myelocytes % 1
[2020-10-13] MEDS: SODIUM BICARBONATE 50ML VIAL 75 ML in SOD CHL 0.45% 1,000 ML IV SCH (05:30)
[2020-10-13] MEDS: PHENYLEPHRINE IV 250 ML IV SCH ×3 (05:35→22:15)
[2020-10-13] MEDS: CLINDAMYCIN 600MG IV 50 ML IV SCH ×3 (05:56→21:59)
[2020-10-13] MEDS: SODIUM ZIRCONIUM CYCL 10 GM PAK GT SCH (05:56)
[2020-10-13] MEDS: InsuLIN REG 1unit/0.01ml Soln (100units/ml) SC SCH ×5 (05:57→23:34)
[2020-10-13] MEDS: PROPOFOL 100 ML IV SCH (06:31)
[2020-10-13] MEDS ORDERED: Glucerna 1.2 Cal 1Liter BOTTLE GT SCH (07:45)
[2020-10-13] MEDS: DexAMETHasone SOD PHOS 10MG/1ML VIAL INJ IV SCH (09:50)
[2020-10-13] MEDS: MEROPENEM 500MG IVPB 50 ML IV SCH ×2 (10:14→22:00)
[2020-10-13] MEDS: CHOLECALCIFEROL (VITD3) 2,000 UNIT CAP/TAB PO SCH (10:15)
[2020-10-13] MEDS: ASPirin 81 mg TAB NG SCH (10:15)
[2020-10-13] MEDS: ASCORBIC ACID 1,000 MG TAB PO SCH (10:15)
[2020-10-13] MEDS: ZINC SULFATE 220mg CAP or TAB PO SCH (10:15)
[2020-10-13] MEDS: FAMOTIDINE (10MG/ML) 2ML VL IV SCH ×2 (10:15→22:00)
[2020-10-13] MEDS ORDERED: Nepro With Carb Steady 1 Liter Bottle GT SCH (10:30)
[2020-10-13] MEDS: SODIUM BICARBONATE 50ML VIAL 75 ML in D5W/SOD CHL 0.45% 1,000 ML IV SCH ×2 (11:30→21:58)
[2020-10-13] MEDS: fentaNYL Drip 2500mCg/250mlNS 250 ML IV SCH (13:00)
[2020-10-13] MEDS: NOREPINEPHRINE 8 MG/250ML KIT 250 ML IV SCH (21:58)
[2020-10-14] VITALS (90 sets, daily range): BP systolic 74–166; BP diastolic 40–64
[2020-10-14] MEDS: MIDAZOLAM DRIP 50 mg/50mL 50 ML IV SCH ×4 (01:24→22:46)
[2020-10-14] MEDS: PROPOFOL 100 ML IV SCH ×2 (01:28→22:54)
[2020-10-14 03:15] LABS: Hemoglobin 7.9 g/dL (12.2-16.2); Mean Corpuscular Volume 87.6 fL (80.0-100.0)
[2020-10-14 03:16] LABS: Mean Corpuscular Hemoglobin 29.9 pg (28.0-32.0); Mean Corpuscular Hgb Conc. 34.2 g/dL (32.0-36.0); Red Blood Cells 2.63 10^6/uL (4.0-5.20); Red Cell Distribution Width 14.4 % (11.8-14.3); White Blood Cell 20.8 10^3/uL (4.4-10.8)
[2020-10-14 03:24] LABS: Basophils % (manual) 0 (0.0-2.0); Blast Cells 0; Eosinophils % (manual) 0 (0-7); Metamyelocytes % 0; Monocytes % (manual) 0 (0-12); Promyelocytes % 0; Reactive Lymphocytes 0
[2020-10-14 03:38] LABS: Band Neutrophils % (manual) 26; Lymphocytes % (manual) 2 (10.0-50.0); Myelocytes % 2
[2020-10-14 03:53] LABS: Albumin 1.2 g/dL (3.4-5.0); Calcium 6.1 mg/dL (8.5-10.1); Potassium 4.1 mmol/L (3.5-5.1)
[2020-10-14 03:56] LABS: BUN/Creatinine Ratio 35.8; Bilirubin, Total 0.9 mg/dL (0.2-1.0); Total Protein 6.1 g/dL (6.4-8.2)
[2020-10-14] MEDS: DOPamine 1600MCG/ML D5W 250 ML IV SCH (04:36)
[2020-10-14] MEDS: InsuLIN REG 1unit/0.01ml Soln (100units/ml) SC SCH ×3 (06:00→18:00)
[2020-10-14] MEDS: ACCU-CHEK COMFORT CURVE STRIP VI SCH ×3 (06:04→18:00)
[2020-10-14] MEDS: CLINDAMYCIN 600MG IV 50 ML IV SCH ×3 (06:04→22:47)
[2020-10-14] MEDS: FUROSEMIDE INJECTION 100 MG in D5W 5% 100 ML IV SCH (06:04)
[2020-10-14] MEDS: PHENYLEPHRINE IV 250 ML IV SCH ×3 (06:35→23:15)
[2020-10-14] MEDS: MEROPENEM 500MG IVPB 50 ML IV SCH ×2 (10:00→21:18)
[2020-10-14] MEDS: SODIUM BICARBONATE 50ML VIAL 75 ML in D5W/SOD CHL 0.45% 1,000 ML IV SCH ×2 (10:35→21:17)
[2020-10-14] MEDS: DexAMETHasone SOD PHOS 10MG/1ML VIAL INJ IV SCH (11:33)
[2020-10-14] MEDS: ZINC SULFATE 220mg CAP or TAB PO SCH (11:34)
[2020-10-14] MEDS: CHOLECALCIFEROL (VITD3) 2,000 UNIT CAP/TAB PO SCH (11:34)
[2020-10-14] MEDS: ASCORBIC ACID 1,000 MG TAB PO SCH (11:34)
[2020-10-14] MEDS: FAMOTIDINE (10MG/ML) 2ML VL IV SCH ×2 (11:34→22:47)
[2020-10-14] MEDS: ASPirin 81 mg TAB NG SCH (11:34)
[2020-10-14] MEDS: fentaNYL Drip 2500mCg/250mlNS 250 ML IV SCH (13:00)
[2020-10-14] MEDS: NOREPINEPHRINE 8 MG/250ML KIT 250 ML IV SCH (22:47)
[2020-10-15] VITALS (98 sets, daily range): BP systolic 52–162; BP diastolic 20–65
[2020-10-15] MEDS: ACCU-CHEK COMFORT CURVE STRIP VI SCH ×4 (00:30→18:29)
[2020-10-15] MEDS: InsuLIN REG 1unit/0.01ml Soln (100units/ml) SC SCH ×4 (00:30→18:29)
[2020-10-15 03:43] LABS: Eosinophils # (auto) 0 10 ^3/uL (0-0.8); Eosinophils % (auto) 0.1 % (0.0-7.0); Lymphocytes # (auto) 0.2 10 ^3/uL (0.4-5.4); Monocytes # (auto) 0.2 10 ^3/uL (0-1.3); Red Blood Cells 2.68 10^6/uL (4.0-5.20)
[2020-10-15 03:45] LABS: Basophils # (auto) 0.1 10 ^3/uL (0-0.2); Basophils % (auto) 0.3 % (0.0-2.0); Hematocrit 23.6 % (36.0-46.0); Lymphocytes % (auto) 0.9 % (10.0-50.0); Mean Corpuscular Hemoglobin 29.8 pg (28.0-32.0); Mean Corpuscular Hgb Conc. 33.9 g/dL (32.0-36.0); Neutrophils # (auto) 18.6 10 ^3/uL (1.6-8.6); Neutrophils % (auto) 97.7 % (37.0-80.0); Nucleated Red Blood Cells % 0.2 %; Red Cell Distribution Width 14.4 % (11.8-14.3)
[2020-10-15 03:52] LABS: Albumin 1.3 g/dL (3.4-5.0); Potassium 3.3 mmol/L (3.5-5.1)
[2020-10-15 03:54] LABS: BUN/Creatinine Ratio 36.1; Total Protein 6.2 g/dL (6.4-8.2)
[2020-10-15] MEDS: PROPOFOL 100 ML IV SCH ×2 (04:51→22:57)
[2020-10-15] MEDS: CLINDAMYCIN 600MG IV 50 ML IV SCH ×3 (06:41→22:58)
[2020-10-15] MEDS: PHENYLEPHRINE IV 250 ML IV SCH ×2 (07:35→15:55)
[2020-10-15] MEDS: DexAMETHasone SOD PHOS 10MG/1ML VIAL INJ IV SCH (09:56)
[2020-10-15] MEDS: POTASSIUM CHL 20MEQ/100ML 100 ML IV SCH ×3 (09:56→12:45)
[2020-10-15] MEDS: MEROPENEM 500MG IVPB 50 ML IV SCH ×2 (09:57→22:58)
[2020-10-15] MEDS: FAMOTIDINE (10MG/ML) 2ML VL IV SCH ×2 (09:57→22:58)
[2020-10-15] MEDS: ASCORBIC ACID 1,000 MG TAB PO SCH (09:57)
[2020-10-15] MEDS: ASPirin 81 mg TAB NG SCH (09:57)
[2020-10-15] MEDS: ZINC SULFATE 220mg CAP or TAB PO SCH (09:57)
[2020-10-15] MEDS: CHOLECALCIFEROL (VITD3) 2,000 UNIT CAP/TAB PO SCH (09:57)
[2020-10-15] MEDS: fentaNYL Drip 2500mCg/250mlNS 250 ML IV SCH (13:00)
[2020-10-15] MEDS: DOPamine 1600MCG/ML D5W 250 ML IV SCH (13:30)
[2020-10-15] MEDS ORDERED: CALCIUM GLUC 4.65meq/50ml D5AE 50 ML IV ONE (16:15)
[2020-10-15] MEDS: SODIUM BICARBONATE 50ML VIAL 75 ML in D5W/SOD CHL 0.45% 1,000 ML IV SCH ×3 (16:36)
[2020-10-15] MEDS: NOREPINEPHRINE 8 MG/250ML KIT 250 ML IV SCH (18:46)
[2020-10-15] MEDS: MIDAZOLAM DRIP 50 mg/50mL 50 ML IV SCH (22:58)
[2020-10-16] VITALS (73 sets, daily range): BP systolic 98–154; BP diastolic 43–65
[2020-10-16] MEDS: PHENYLEPHRINE IV 250 ML IV SCH ×3 (00:15→16:55)
[2020-10-16] MEDS: MIDAZOLAM DRIP 50 mg/50mL 50 ML IV SCH ×2 (00:17→03:20)
[2020-10-16] MEDS: ACCU-CHEK COMFORT CURVE STRIP VI SCH ×4 (00:18→17:37)
[2020-10-16] MEDS: SODIUM BICARBONATE 50ML VIAL 75 ML in D5W/SOD CHL 0.45% 1,000 ML IV SCH ×2 (00:18→13:55)
[2020-10-16] MEDS: fentaNYL Drip 2500mCg/250mlNS 250 ML IV SCH (00:19)
[2020-10-16] MEDS: NOREPINEPHRINE 8 MG/250ML KIT 250 ML IV SCH (00:20)
[2020-10-16] MEDS: PROPOFOL 100 ML IV SCH (03:20)
[2020-10-16 04:14] LABS: Albumin 1.2 g/dL (3.4-5.0); BUN/Creatinine Ratio 36.3; Bilirubin, Total 1.1 mg/dL (0.2-1.0); Magnesium 1.6 mg/dL (1.6-2.6); Total Protein 5.6 g/dL (6.4-8.2)
[2020-10-16 04:30] LABS: Basophils # (auto) 0 10 ^3/uL (0-0.2); Basophils % (auto) 0.2 % (0.0-2.0); Eosinophils # (auto) 0.3 10 ^3/uL (0-0.8); Eosinophils % (auto) 1.8 % (0.0-7.0); Hematocrit 21.1 % (36.0-46.0); Lymphocytes # (auto) 0.3 10 ^3/uL (0.4-5.4); Lymphocytes % (auto) 1.6 % (10.0-50.0); Mean Corpuscular Hemoglobin 29.6 pg (28.0-32.0); Mean Corpuscular Hgb Conc. 33.2 g/dL (32.0-36.0); Mean Corpuscular Volume 89.1 fL (80.0-100.0); Monocytes # (auto) 0 10 ^3/uL (0-1.3); Monocytes % (auto) 0.2 % (0.0-12.0); Neutrophils # (auto) 18.1 10 ^3/uL (1.6-8.6); Neutrophils % (auto) 96.2 % (37.0-80.0); Nucleated Red Blood Cells % 0.3 %; Red Blood Cells 2.37 10^6/uL (4.0-5.20); Red Cell Distribution Width 15.1 % (11.8-14.3); White Blood Cell 18.8 10^3/uL (4.4-10.8)
[2020-10-16 04:31] LABS: Hemoglobin 7.1 g/dL (12.2-16.2)
[2020-10-16] MEDS: InsuLIN REG 1unit/0.01ml Soln (100units/ml) SC SCH ×4 (05:36→17:36)
[2020-10-16] MEDS: CLINDAMYCIN 600MG IV 50 ML IV SCH ×2 (05:36→14:00)
[2020-10-16] MEDS: MEROPENEM 500MG IVPB 50 ML IV SCH (10:26)
[2020-10-16] MEDS: FAMOTIDINE (10MG/ML) 2ML VL IV SCH (10:26)
[2020-10-16] MEDS: DexAMETHasone SOD PHOS 10MG/1ML VIAL INJ IV SCH (10:26)
[2020-10-16] MEDS: ZINC SULFATE 220mg CAP or TAB PO SCH (10:27)
[2020-10-16] MEDS: ASPirin 81 mg TAB NG SCH (10:27)
[2020-10-16] MEDS: CHOLECALCIFEROL (VITD3) 2,000 UNIT CAP/TAB PO SCH (10:27)
[2020-10-16] MEDS: ASCORBIC ACID 1,000 MG TAB PO SCH (10:27)
[2020-10-16] MEDS ORDERED: CALCIUM GLUC 4.65meq/50ml D5AE 50 ML IV ONE (11:45)
[2020-10-16] MEDS: MAGNESIUM SULFATE 1GM/100ML 100 ML IV SCH ×2 (12:00→13:00)
[2020-10-16] MEDS: DOPamine 1600MCG/ML D5W 250 ML IV SCH (13:30)
== END 2020-10-16 21:35 | DRG 870 ==
LOC: EDBD 07:05 → ER 07:05 → TELE 07:06 → DOU IN ICU 10-08 16:00
PROVIDERS: ADMIT Internal Medicine; ATTEND Internal Medicine
PROC: 5A12012 Performance of Cardiac Output, Single, Manual (ICD-10-PCS; principal; 2020-10-02)
PROC: 5A1955Z Respiratory Ventilation, Greater than 96 Consecutive Hours (ICD-10-PCS; 2020-10-02)
PROC: 0BH17EZ Insertion of Endotracheal Airway into Trachea, Via Natural or Artificial Opening (ICD-10-PCS; 2020-10-02)
DX: A41.89 Other specified sepsis (principal); U07.1 COVID-19; J12.82 Pneumonia due to coronavirus disease 2019; J96.01 Acute respiratory failure with hypoxia; I21.4 Non-ST elevation (NSTEMI) myocardial infarction; I50.21 Acute systolic (congestive) heart failure; G93.41 Metabolic encephalopathy; I63.9 Cerebral infarction, unspecified; R65.21 Severe sepsis with septic shock; N17.0 Acute kidney failure with tubular necrosis; E87.1 Hypo-osmolality and hyponatremia; E87.4 Mixed disorder of acid-base balance; I46.9 Cardiac arrest, cause unspecified; D89.839 Cytokine release syndrome, grade unspecified; D69.6 Thrombocytopenia, unspecified; E87.6 Hypokalemia; Z51.5 Encounter for palliative care; D69.59 Other secondary thrombocytopenia; D64.9 Anemia, unspecified; E66.3 Overweight; E78.1 Pure hyperglyceridemia; E66.01 Morbid (severe) obesity due to excess calories; E83.51 Hypocalcemia; T38.0X5A Adverse effect of glucocorticoids and synthetic analogues, initial encounter; Y92.89 Other specified places as the place of occurrence of the external cause; Z68.37 Body mass index [BMI] 37.0-37.9, adult
CPT/HCPCS: 31500; 36415; 36600; 70450; 71045; 76705; 80048; 80053; 80061; 80307; 80320; 81001; 82550; 82570; 82728; 82805; 82962; 83036; 83605; 83615; 83735; 83880; 84300; 84443; 84484; 85007; 85025; 85027; 85045; 85379; 85610; 85652; 85730; 86141; 86880; 87040; 87081; 87086; 87088; 87426; 92950; 93005; 93306; 93886; 93970; 94002; 94003; 96365; 99291; G0378; J0610; J1100; J1815; J1956; J2185; J2250; J2704; J3480; J3490; J7060